=== PATIENT | female | born 1960 | race Caucasian/White ===

== ENCOUNTER → 2018-10-22 | Outpatient (CLI) | payer OTHER ==
[~2018-10-22] MED LIST: AMBEREN; B-50 COMPLEX1 EAC1; BISOPROLOL FUMAR5 MG; CAL MAG ASPART1 EACH; CLONAZEPAM; LEVOTHYROXIN0.025 MG PO; LORTAB 5 MG/5001 TA1 PO; POTASSIUM20; PRILOSEC 20 MG20 MG; VIT D; ZINC; ZOLOFT 50 MG TA50 M1; [UNRECOGNIZED DRUG - OTHER]
== END ==
LOC: M.RAD 09:48
DX: Z12.31 Encounter for screening mammogram for malignant neoplasm of breast (principal)